=== PATIENT | male | born 1950 | race Caucasian/White ===

== ENCOUNTER 2016-08-11 06:01 | Emergency (ER) | payer BC, OTHER ==
[2016-08-11] MEDS ORDERED: KETOROLAC TROMETHAMINE 30 MG/ML VIAL ONE (06:29)
[2016-08-11 06:39] LABS: BASOPHILS 0.7 % (0.0-2.0); EOSINOPHILS# 0.3 X 10^3uL (0.0-0.4); HEMATOCRIT 45.5 % (42.0-54.0); HEMOGLOBIN 15.5 g/dL (14.0-18.0); LYMPHOCYTES 17.1 % (20.0-40.0); MEAN CELL VOLUME 85.1 fL (80.0-100.0); MEAN PLATELET VOLUME 7.4 fL (7.4-10.4); MONOCYTES 9.8 % (2.0-10.0); MONOCYTES# 0.6 X 10^3uL (0.2-1.0); NEUTROPHILS 67.4 % (54.0-75.0); NEUTROPHILS# 4.2 X 10^3uL (2.6-6.7); PLATELET COUNT 225 X 10^3uL (130-440); RED BLOOD COUNT 5.35 X 10^6uL (4.20-6.10); RED CELL DISTRIBUTION WIDTH 13.2 % (11.5-14.5); WHITE BLOOD COUNT 6.1 X 10^3uL (3.9-10.7)
--- NOTE | 2016-08-11 06:40 | CT REPORT ---
HISTORY: Left flank pain, history of stones. COMPARISON: None. TECHNIQUE: This examination was performed using automated exposure control, adjustment of mA or kV according to patient size, and/or use of iterative reconstruction technique. Axial contiguous images of the abdome n and pelvis were obtained without oral or IV contrast, coronal reformat images also performed. FINDINGS: The visualized lung parenchyma and cardiac structures are unremarkable. There is mild left hydronephrosis and hydroureter secondary to a 4 mm calculus in the proximal third of the left ureter. There are 2 nonobstructing calyceal calculi in the superior pole of the left kidn ey, each measuring approximately 4 mm. Right kidney is unremarkable. Urinary bladder is empty. Liver, gallbladder, pancreas, spleen, and adrenal glands are unremarkable. The stomach is unremarkable. There is a right lower abdominal quadrant ileostomy. Patient is status p ost total colectomy. There is scattered aortic atherosclerosis without aneurysm. There is no gross lymphadenopathy. Multil evel degenerative disc disease is present in the thoracolumbar spine. IMPRESSION: 1. Mild left hydronephrosis and hydroureter secondary to a 4 mm calculus in the proximal third of the left ureter. 2. Left kidney superior pole contains 2 nonobstructing calyceal calculi, each measuring 4 mm. .. Final Electronic Signature: This report was electronically signed by En Riggs MD on 08/11/2016 6: 37 AM. [email or web address] /
[2016-08-11 06:44] LABS: BLOOD UREA NITROGEN 19 mg/dL (9-20); CALCIUM 9.7 mg/dL (8.4-10.2); CHLORIDE 107 mmol/L (98-107); EST GLOMERULAR FILTRATION RATE > 60 mL/min; GLUCOSE 112 mg/dL (70-100); POTASSIUM 3.7 mmol/L (3.5-5.1); SODIUM 139 mmol/L (137-145)
--- NOTE | 2016-08-11 07:27 | ER PHYSICIAN DOCUMENTATION ---
Physician Documentation [facility] Name:Esteban Dai Age:66 yrs Sex:Male :1950 Arrival Date:08/11/2016 Time:06:01 Bed4 Private MD:Physician, No ED Alvin Sanches Disposition: 08/11/16 07:07 Discharged to Home/Self Care. Impression: Ureterolithiasis - Renal Colic. - Condition is Good. - Discharge Instructions: KIDNEY STONE w/ Colic. - Prescriptions for Hydrocodone- Acetaminophen 5-325 mg Oral Tablet - take 1 tablet by ORAL route every 6 hours As needed; 20 tablet. - Medical Reconciliation form form. - Follow up: Private Physician; When: 4- 6 days; Reason: Continuance of care. - Problem is new. - Symptoms have improved. HPI: 08/11 06:46 This 66 yrs old Male presents to ER via Walk In with complaints of Possible sc Kidney Stone. 06:46 The patient complains of pain in the left low back. The pain radiates to left testicle. sc Onset: The symptom(s)/episode began/occurred yesterday. Modifying factors: The symptoms are alleviated by nothing. the symptoms are aggravated by nothing. Associated signs and symptoms: The patient has no apparent associated signs or symptoms. Severity of pain: At its worst the pain was moderate. The patient has experienced similar episodes in the past, several times, and the symptoms today are exactly the same, to when the patient was apparently diagnosed with kidney stones. Historical: - Allergies: No known drug Allergies; - Home Meds: 1. Aspirin Oral 2. Sotalol Oral 3. Simvastatin Oral 4. Zetia Oral - PMHx: CAD; Hypertension; ATRIAL FIB; HIGH CHOLESTEROL; - PSHx: cardiac stents; ileostomy; neck fusion; kidney stent; - Tetanus: < 10 years. - Ebola Screening: : Patient denies exposure to infectious person. Patient denies travel to an Ebola-affected area in the 21 days before illness onset. . - Immunization history: Flu Vaccine < 1 year. - Social history: Smoking status: Patient states was never smoker of tobacco. Patient/guardian denies using alcohol. - Code Status:: Full code. ROS: 06:47 Constitutional: Negative for fever, chills, and weight loss. sc Eyes: Negative for injury, pain, redness, and discharge. ENT: Negative for injury, pain, and discharge. Neck: Negative for injury, pain, and swelling. Cardiovascular: Negative for chest pain, palpitations, and edema. Respiratory: Negative for shortness of breath, cough, wheezing, and pleuritic chest pain. Back: Negative for injury and pain. MS/Extremity: Negative for injury and deformity. Skin: Negative for injury, rash, and discoloration. 06:47 Neuro: Negative for headache, weakness, numbness, tingling, and seizure. sc 06:47 Abdomen/GI: Negative for abdominal pain, nausea, vomiting. 06:47 : Positive for flank pain. Exam: Constitutional: This is a well developed, well nourished patient who is awake, alert, and in no acute distress. Head/Face: Normocephalic, atraumatic. Eyes: Pupils equal round and reactive to light, extra-ocular motions intact. Lids and lashes normal. Conjunctiva and sclera are non-icteric and not injected. Cornea within normal limits. Periorbital areas with no swelling, redness, or edema. ENT: Nares patent. No nasal discharge, no septal abnormalities noted. Tympanic membranes are normal and external auditory canals are clear. Oropharynx with no redness, swelling, or masses, exudates, or evidence of obstruction, uvula midline. Mucous membranes moist. Neck: Trachea midline, no thyromegaly or masses palpated, and no cervical lymphadenopathy. Supple, full range of motion without nuchal rigidity, or vertebral point tenderness. No meningismus. Chest/axilla: Normal chest wall appearance and motion. Nontender with no deformity. No lesions are appreciated. Cardiovascular: Regular rate and rhythm with a normal S1 and S2. No gallops, murmurs, or rubs. Normal PMI, no JVD. No pulse deficits. Respiratory: Lungs have equal breath sounds bilaterally, clear to auscultation and percussion. No rales, rhonchi or wheezes noted. No increased work of breathing, no retractions or nasal flaring. Abdomen/GI: Soft, non-tender, with normal bowel sounds. No distension or tympany. No guarding or rebound. No evidence of tenderness throughout. Back: No spinal tenderness. No costovertebral tenderness. Full range of motion. 06:48 Skin: Warm, dry with normal turgor. Normal color with no rashes, no lesions, and no sc evidence of cellulitis. 06:48 Abdomen/GI: Bowel sounds: normal, Palpation: abdomen is soft and non-tender. 06:48 : CVA tenderness, on the left. Vital Signs: 06:10 BP 123 / 88; Pulse 67; Resp 16; Temp 98.2; Pulse Ox 94% on R/A; Weight 108.86 kg; em1 Height 5 ft. 8 in. (172.72 cm); Pain 7/10; 07:25 BP 138 / 86; Pulse 67; Pulse Ox 94% ; Pain 3/10; st 06:10 Body Mass Index 36.49 (108.86 kg, 172.72 cm) em1 MDM: 06:13 Patient medically screened. sc 06:48 Differential diagnosis: nephrolithiasis, pyelonephritis, UTI. Data reviewed: vital sc signs, nurses notes, lab test result(s), radiologic studies, CT scan, and as a result, I will continue to observe the patient, prescribe pain medication, Toradol. Counseling: I had a detailed discussion with the patient and/or guardian regarding: the historical points, exam findings, and any diagnostic results supporting the discharge/admit diagnosis, lab results, radiology results, the need for outpatient follow up, for a referral to a specialist. Medication response: The patient's symptoms have resolved. 08/11 06:45 Order name: CBC AUTO DIF, MDIF/RMOR IF IND; Complete Time: 06:46 EDMS 07 06:45 Order name: BASIC METABOLIC PANEL; Complete Time: 06:46 EDMS 07 06:42 Order name: CAT SCAN; ABD/[place] [id number]; Complete Time: 06:46 EDMS 07 06:45 Interpretation: Abnormal. sc 08/11 06:13 Order name: Iv Saline Lock; Complete Time: 06:23 lb 08/11 06:21 Order name: Urine Dip; Complete Time: 06:23 sc Dispensed Medications: 06:22 Drug: Toradol 30 mg; Route: IVP; Site: left antecubital; lb 07:26 Follow up: Response: Pain is decreased st 06:35 Drug: NS 0.9% 1000 ml; Route: IV; Rate: bolus; Site: left antecubital; lb 07:26 Follow up: IV Status: Completed infusion; IV Intake: 1000ml Point of Care Testing: Urine Dip: 06:31 pH: 5.5; ; Specific [place]: 1.030; Ketones: Negative; Glucose: Negative; Protein: lb Trace; Leukocytes: Negative; Nitrite: Negative ; Blood: Large (+++); Bilirubin: Negative ; Urobilinogen: Normal Signatures: Jennifer Ross RN RN Alvin Mai MD MD sc Bollock, Lynda lb
--- NOTE | 2016-08-11 07:27 | ER NURSING DOCUMENTATION ---
Nurse's Notes [facility] Name:Esteban Dai Age:66 yrs Sex:Male :1950 Arrival Date:08/11/2016 Time:06:01 Bed4 Private MD:Physician, No Diagnosis:Ureterolithiasis - Renal Colic Presentation: 08/11 06:10 Acuity: CASTRO 3 lb 06:24 Presenting complaint: Patient states: left testicular pain yesterday, now in left lb flank. hx of kidney stones. Transition of care: Camp. Notified ED Physician of Dr. Mai notified. Care prior to arrival: Medication(s) given: hydrocodone. 06:24 Method Of Arrival: Walk In lb Triage Assessment: 06:29 General: Appears uncomfortable, Behavior is appropriate for age, pleasant. Pain: lb Complains of pain in left low back Pain does not radiate. Pain currently is 7 out of 10 on a pain scale. EENT: No deficits noted. Neuro: No deficits noted. Cardiovascular: No deficits noted. Respiratory: No deficits noted. GI: No deficits noted. : Reports urinary frequency since yesterday. Historical: - Allergies: No known drug Allergies; - Home Meds: 1. Aspirin Oral 2. Sotalol Oral 3. Simvastatin Oral 4. Zetia Oral - PMHx: CAD; Hypertension; ATRIAL FIB; HIGH CHOLESTEROL; - PSHx: cardiac stents; ileostomy; neck fusion; kidney stent; - Tetanus: < 10 years. - Ebola Screening: : Patient denies exposure to infectious person. Patient denies travel to an Ebola-affected area in the 21 days before illness onset. . - Immunization history: Flu Vaccine < 1 year. - Social history: Smoking status: Patient states was never smoker of tobacco. Patient/guardian denies using alcohol. - Code Status:: Full code. Screenin:34 Infectious Disease Risk None. Abuse screen: Denies threats or abuse. Denies injuries lb from another. Nutritional screening: No deficits noted. Assessment: 06:30 See Triage Assessment done by same RN. General: Appears uncomfortable, Behavior is lb appropriate for age, pleasant. Pain: Complains of pain in left low back Pain does not radiate. Pain currently is 7 out of 10 on a pain scale. Neuro: No deficits noted. EENT: No deficits noted. Cardiovascular: No deficits noted. Respiratory: No deficits noted. Vital Signs: 06:10 BP 123 / 88; Pulse 67; Resp 16; Temp 98.2; Pulse Ox 94% on R/A; Weight 108.86 kg; em1 Height 5 ft. 8 in. (172.72 cm); Pain 7/10; 07:25 BP 138 / 86; Pulse 67; Pulse Ox 94% ; Pain 3/10; st 06:10 Body Mass Index 36.49 (108.86 kg, 172.72 cm) em1 ED Course: 06:02 Patient arrived in ED. em2 06:02 Physician, No is Private Physician. em2 06:10 Arely Campbell is Primary Nurse. lb 06:12 Triage completed. lb 06:13 Alvin Mai MD is Attending Physician. sc 06:[address] tt 06:29 Patient moved back from CT. mr 06:[address] Mai notified. lb 06:34 Inserted peripheral IV: 20 gauge in left antecubital area and blood collected. lb 06:34 Valuables Remains with patient Patient has correct armband on for positive lb identification. Placed in gown. Bed in low position. Call light in reach. Side rails up X 1. Administered Medications: 06:22 Drug: Toradol 30 mg; Route: IVP; Site: left antecubital; lb 07:26 Follow up: Response: Pain is decreased st 06:35 Drug: NS 0.9% 1000 ml; Route: IV; Rate: bolus; Site: left antecubital; lb 07:26 Follow up: IV Status: Completed infusion; IV Intake: 1000ml st Point of Care Testing: Urine Dip: 06:31 pH: 5.5; ; Specific [place]: 1.030; Ketones: Negative; Glucose: Negative; Protein: lb Trace; Leukocytes: Negative; Nitrite: Negative ; Blood: Large (+++); Bilirubin: Negative ; Urobilinogen: Normal Intake: 07:26 IV: 1000ml; Total: 1000ml. st Outcome: 07:07 Discharge ordered by . ny 07:25 Discharged to home ambulatory. st 07:25 Condition: improved 07:25 Discharge instructions given to patient, Instructed on discharge instructions, follow up and referral plans. medication usage, Prescriptions given X 1. 07:25 IV D/Kvng 07:26 [address] 0708 09:12 Discharge F/U Call: Spoke with: patient. other: Name: pt is pain free now. Pt has no st questions or concerns. Signatures: Jennifer Ross, RN RN Alvin Osorio MD MD sc [place], Tracy tt Meinking-tech, Lexi-tech em1 Meinking-reg, Lexi-reg em2 Arely Campbell Michael mr
== END 2016-08-11 07:27 | disposition home or self-care (01) ==
LOC: ER 06:01
DX: N20.1 Calculus of ureter (principal); N23 Unspecified renal colic; I10 Essential (primary) hypertension; I25.10 Atherosclerotic heart disease of native coronary artery without angina pectoris; I48.91 Unspecified atrial fibrillation; Z79.82 Long term (current) use of aspirin; Z79.899 Other long term (current) drug therapy
CPT/HCPCS: 74176; 80048; 85025; 96361; 96374; 99284; J1885